=== PATIENT | female | born 1955 | race Two or more races ===

== ENCOUNTER 2021-08-07 22:03 | Emergency (ER) | payer SELFPAY ==
[~2021-08-07] VITALS: Ht 154.9 cm; Wt 80.0 kg
[2021-08-08] MEDS ORDERED: CEPH500C PO (05:44)
[2021-08-08] MEDS ORDERED: BENZ11.94 MM (05:44)
[2021-08-08] MEDS ORDERED: SULF1TAB24 PO (05:44)
--- NOTE | 2021-08-08 05:45 | PHYS DOC ---
General Adult EDM: Chief Complaint: TOOTH ACHE OR PAIN HPI: HPI: 66 yo F presents to the ED with her daughter, (patient consents to his/her/their knowledge and involvement in pts' medical care), with complaints of painful upper dental pain for the past 2 days with rash over patient's left cheek. Has not seen a dentist for these complaints. Has no known allergies. No history of prior skin rashes or MRSA. No associated epiphora, blurry vision, headache, neck stiffness, pain behind her eyes or fever. 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 Requests daughter to translate. Review of Systems: Review of Systems: Constitutional: Denies fever or chills. [] Eyes: Denies change in visual acuity or eye discharge HENT: Denies nasal congestion or sore throat. [] Respiratory: Denies cough or shortness of breath. [] Cardiovascular: Denies chest pain or edema. [] GI: Denies nausea or vomiting Musculoskeletal: Denies back pain or joint pain. [] Integument: Denies diaphoresis or desquamation Neurologic: Denies headache or neck stiffness Psychiatric: Denies depression or anxiety. [] Heart Score: C/O Chest Pain: No Risk Factors: Risk Factors: DM, Current or recent (<one month) smoker, HTN, HLP, family history of CAD, obesity. Risk Scores: Score 0 - 3: 2.5% MACE over next 6 weeks - Discharge Home Score 4 - 6: 20.3% MACE over next 6 weeks - Admit for Clinical Observation Score 7 - 10: 72.7% MACE over next 6 weeks - Early Invasive Strategies Allergies: Allergies: Allergies Coded Allergies Type Severity Reaction Last Updated Verified No Known Drug Allergies 08/08/21 No Physical Exam: PE: Constitutional: Well developed, well nourished, no acute distress, non-toxic appearance. HENT: Normocephalic, atraumatic, pain over tooth #10&11, 10 is mildly decayed and 11 is decayed approximately 95%-currently see the base of the tooth at the gumline, gingiva is swollen over these teeth, left upper lip swollen near area of rash, no mucous membrane erosions, lesions or ulcers Eyes: Pupils equal and reactive, EOMI, conjunctiva normal, no discharge, no exophthalmos Neck: Normal range of motion, supple, Cardiovascular: S1/2 present, regular rhythm Lungs & Thorax: Speaking in full sentences, bilateral equal chest rise, no tachypnea or increased work of breathing Skin: Warm, dry, streaking horizontal erythmeatous rash from left upper lip to left lower eyelid, Extremities: No tenderness, no cyanosis, Neurologic: Alert and oriented X 3, no focal deficits noted. [] Psychologic: Affect normal, judgement normal, mood normal. [] EKG: EKG: [] Radiology/Procedures: Radiology/Procedures: [] Course & Med Decision Making: Course & Med Decision Making Pertinent Labs and Imaging studies reviewed. (See chart for details) Concern for upper teeth dental pain, likely was empirical abscess with associated facial cellulitis. Symptoms and physical exam concerning for early periorbital cellulitis-I do not suspect periorbital cellulitis, low suspicion for orbital cellulitis. Will treat with Bactrim and Keflex recommend urgent dental clinic follow-up in the next 24 to 48 hours (list of clinics given). Also recommend PMD appointment in 1 to 2 days to re-evaluate periorbital cellulitis. Will discharge home with strict ED return precautions were given for blurry vision, fever, headache, neck stiffness, neurologic deficits/nerve palsies. Encouraged urgent outpatient follow-up with PMD and dental clinic. Life-threatening processes were considered but are low suspicion at this time, given history, physical exam and ED workup. Pt was educated on all prescription medications and adverse effects. All patient's questions were answered and pt was stable at time of discharge. Life/limb-threatening differential includes but is not limited to, Demar's angina, infection (periodontal or peritonsillar abscess, retropharyngeal absc ess, Vincents angina, ANUG, pharyngeal/electrician rectifier maintenance/buccal space infection), trauma or fracture, dental fracture/subluxation/avulsion, dental bleeding or hemorrhage/DIC, pulpitis, alveolar osteitis or neoplasm I have spoken with the patient and/or caregivers. I explained the patient's condition, diagnoses and treatment plan based on the information available to me at this time. I have answered the patient and/or caregiver's questions and addressed any concerns. The patient and/or caregivers have a good understanding of patient's diagnosis, condition and treatment plan as can be expected at this point. Vital signs have been stable. Patient's condition is stable and appropriate for discharge from the emergency department. Patient will pursue further outpatient evaluation with primary care physician or other designated or consulting physician as outlined in the discharge instructi ons. The patient and/or caregivers are agreeable to this plan of care and follow-up instructions have been explained in detail. The patient and/or caregivers have received these instructions in written form and have expressed an understanding of the discharge instructions. The patient and/or caregivers are aware that any significant change of condition or worsening of symptoms s hould prompt immediate return to this or the closest emergency department or call to 911. Dacia Disclaimer: Dacia Disclaimer: This electronic medical record was generated, in whole or in part, using a voice recognition dictation system. Departure Departure Impression: Primary Impression: Pain, dental Additional Impressions: Periapical abscess Facial cellulitis Disposition: HOME / SELF CARE / HOMELESS Condition: STABLE Referrals: CHARLY HILL III DO Follow-up with your primary care physician in 24 to 48 hours to re-evaluation OR FOLLOW UP WITH FAMILY MEDICINE: [address], [address] [place] [address] Patient Instructions: Cellulitis, Dental Abscess, Dental Caries, Periorbital Cellulitis Additional Instructions: EMERGENCY DEPARTMENT GENERAL DISCHARGE INSTRUCTIONS Thank you for coming to [facility] Emergency Department (ED) today and trusting us with you care. We trust that you had a positive experience in our Emergency Department. If you wish to speak to the department management, you may call the Director at [phone]. YOUR FOLLOW UP INSTRUCTIONS ARE FOLLOWS: 1. Do you have a private Doctor? If you do not have a private doctor, please ask for a resource list of physicians or clinics that may be able to assist you with follow up care. 2. The Emergency Physicain has interpreted your x-rays. The X-Ray specialist will also review them. If there is a change in the findings, you will be notified in 48 hours when at all possible. 3. A lab test or culture has been done, your results will be reviewed and you will be notified if you need a change in treatment. ADDITIONAL INSTRUCTIONS AND INFORMATION: 1. Your care today has been supervised by a physician who is specially trained in emergency care. Many problems require more than one evaluation for a complete diagnosis and treatment. We recommend that you schedule your follow up appointment as recommended to ensure complete treatment of you illness or injury. If you are unable to obtain follow up care and continue to have a problem, or if your condition worsens, we recommend that you return to the ED. 2. We are not able to safely determine your condition over the phone nor are we able to give sound medical advice over the phone. For these safety reasons, if you call for medical advice we will ask you to come to the ED for further evaluation. 3. If you have any questions regarding these discharge instructions please call the ED at [phone]. SAFETY INFORMATION: In the interest of safety, wellness, and injury prevention; we encourage you to wear your sealbelt, if you smoke; quite smoking, and we encourage family to use a protective helmet for bicycling and other sporting events that present an increased risk for head injury. IF YOUR SYMPTOMS WORSEN OR NEW SYMPTOMS DEVELOP, OR YOU HAVE CONCERNS ABOUT YOUR CONDITION; OR IF YOUR CONDITION WORSENS WHILE YOU ARE WAITING FOR YOUR FOLLOW UP APPOINTMENT; EITHER CONTACT YOUR PRIMARY CARE DOCTOR, THE PHYSICIAN WHOSE NAME AND NUMBER YOU WERE GIVEN, OR RETURN TO THE ED IMMEDIATELY. Scripts Benzocaine/Menthol/Zinc Chlor (Orajel 3X Toothache-Gum Gel) 11.9 Gm Gel..gram. 11.9 GM MM QIDPRN PRN for PAIN for 5 Days, #1 EACH Prov: RYAN BOOTHE DO 08/08/21 Sulfamethoxazole/Trimethoprim (BACTRIM DS TABLET) 1 Each Tablet 1 TAB PO BID for infection for 10 Days, #20 TAB Prov: RYAN BOOTHE DO 08/08/21 Cephalexin (KEFLEX) 500 Mg Capsule 1 CAP PO QID for 10 Days, #40 CAP Prov: RYAN BOOTHE DO 08/08/21 RYAN BOOTHE DO Aug 08, 2021 05:45
[2021-08-08 05:49] VITALS: BP 124/80
== END 2021-08-08 06:26 | disposition home or self-care (01) ==
LOC: ER 22:03
DX: K04.7 Periapical abscess without sinus (principal); L03.211 Cellulitis of face
CPT/HCPCS: 99283